=== PATIENT | female | born 1965 | race Hispanic/Latino ===

== ENCOUNTER 2019-05-30 18:10 | Emergency (ER) | payer OTHER ==
[2019-05-30] MEDS ORDERED: ASPIRIN 325 MG TABLET ONE (18:26)
[2019-05-30 18:30] LABS: BASOPHILS % (AUTO) 0.5 % (0.0-5.0); EOSINOPHILS % (AUTO) 1.1 % (0.0-8.0); HEMATOCRIT 34.9 % (36-48); LYMPHOCYTES % (AUTO) 40.6 % (21.0-51.0); MEAN CORPUSCULAR HEMOGLOBIN 29.3 pg (27.0-33.0); MEAN CORPUSCULAR HGB CONC 32.7 g/dL (32.0-36.0); MEAN CORPUSCULAR VOLUME 89.7 fL (79-99); MONOCYTES % (AUTO) 10.7 % (3.0-13.0); NEUTROPHILS % (AUTO) 46.8 % (40.0-77.0); PLATELET COUNT (AUTO) 180 K/uL (130-400); RED BLOOD CELL COUNT(AUTO) 3.89 MIL/uL (4.00-5.50); RED CELL DISTRIBUTION WIDTH 13.1 % (11.0-15.5); WHITE BLOOD COUNT (AUTO) 3.7 K/uL (4.8-10.8)
[2019-05-30 18:42] LABS: CREATININE 0.8 mg/dL (0.5-1.5); POTASSIUM 3.4 mmol/L (3.5-5.1)
[2019-05-30 18:44] LABS: INR 1.13 (0.85-1.15); PARTIAL THROMBOPLASTIN TIME 28.9 SEC (26.3-35.5); PROTHROMBIN TIME 11.8 SEC (9.6-11.6)
[2019-05-30 18:47] LABS: ALBUMIN 3.7 g/dL (3.5-5.0); BILIRUBIN,TOTAL 0.3 mg/dL (0.2-1.0); TOTAL PROTEIN, SERUM 6.7 g/dL (6.0-8.3)
[2019-05-30 19:34] LABS: AMPHET/METH SCREEN,URINE NEGATIVE (NEGATIVE); BARBITURATE SCREEN, URINE NEGATIVE (NEGATIVE); BENZODIAZEPINES SCREEN,URINE NEGATIVE (NEGATIVE); CANNABINOID SCREEN,URINE NEGATIVE (NEGATIVE); COCAINE SCREEN,URINE NEGATIVE (NEGATIVE); OPIATE SCREEN,URINE NEGATIVE (NEGATIVE); PHENCYCLIDINE SCREEN,URINE NEGATIVE (NEGATIVE)
[2019-05-30] MEDS ORDERED: POTASSIUM CHLORIDE 20 MEQ ERTAB PO ONE (22:48)
== END 2019-05-30 22:53 | disposition home or self-care (01) ==
LOC: EDH 18:10
DX: E87.6 Hypokalemia (principal); D70.9 Neutropenia, unspecified; R07.89 Other chest pain
CPT/HCPCS: 36415; 71045; 73030; 80053; 80305; 82550; 84484; 85025; 85610; 85730; 93005

== ENCOUNTER 2025-01-05 23:29 | Emergency (ER) | payer OTHER ==
[~2025-01-05] VITALS: Ht 162.6 cm; Wt 67.1 kg
[2025-01-06 00:04] LABS: IMMATURE GRANULOCYTE ABSOLUTE 0.02 K/uL (0-1); NUCLEATED RED BLOOD CELLS 0.0 % (0.0-0.19); PLATELET COUNT (AUTO) 182 K/uL (130-400); RED BLOOD CELL COUNT(AUTO) 4.24 MIL/uL (4.00-5.50); RED CELL DISTRIBUTION WIDTH 13.2 % (11.0-15.5); WHITE BLOOD COUNT (AUTO) 4.2 K/uL (4.8-10.8)
[2025-01-06] MEDS: FAMOTIDINE 20MG VIAL IV ONE (00:08)
[2025-01-06] MEDS: 0.9%NACL 1000ML 1,000 ML IV ONE (00:10)
[2025-01-06 00:14] LABS: APPEARANCE,URINE CLEAR (CLEAR); CREATININE 0.5 mg/dL (0.5-1.0); GLOMERULAR FILTR. RATE CALC 107.0 mL/min (>90); GLUCOSE, URINE (UA) NEGATIVE (NEGATIVE); GLUCOSE,RANDOM 102.0 mg/dL (70-105); LEUKOCYTE ESTERASE ,URINE 25 Leu/uL (NEGATIVE); NITRATE,URINE NEGATIVE (NEGATIVE); OCCULT BLOOD,URINE NEGATIVE (NEGATIVE); SODIUM SERUM 144.0 mmol/L (136-145); UREA NITROGEN, BLOOD 13.0 mg/dL (7-18)
[2025-01-06 00:17] LABS: ADD UA MICROSCOPIC YES
[2025-01-06 00:19] LABS: SQUAMOUS EPITHELIAL CELL,UR RARE /HPF (0-2)
[2025-01-06 00:39] LABS: COVID19 (SARS ANTIGEN RAPID) PRESUMPTIVE NEGATIVE (NEGATIVE)
[2025-01-06 00:40] LABS: INFLUENZA TYPE A Negative For Type A (NEGATIVE); INFLUENZA TYPE B Negative For Type B (NEGATIVE)
--- NOTE | 2025-01-06 01:24 | ERN ---
ED Note History of Present Illness Stated Complaint: C/O HEADACHE, N X V, DIZZINESS Chief Complaint: Headache Time Seen by MD: 23:42 Dictation: This is a 59-year-old female who presented to the emergency room with her spouse with complaints of a headache nausea vomitings and dizziness that has been going on for the past 10 days off and on. She stated that she has had headaches quite severe associated with nausea vomitings. However the last 2 days it has been her renders as she describes it. The headache is mostly in the frontal and parietal area. This is associated with photosensitivity and severe nausea vomitings. No history of any seizures. No history of any weakness on 1 side. No increased lacrimation Headache is throbbing type. She does give a history of bumping into a wood in a kennel many weeks ago and sustaining a bump on her head. No loss of consciousness no blood thinners. She denied any blurred vision diplopia facial asymmetry. She also denied any neck pains. 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 babysitter Patient states that 15 years ago she has had similar headaches, She has reported that her mother a few weeks ago with a brain tumor Temperature 97.3 pulse 59 respirations 20 blood pressure 132/62 with a pulse oximetry of 98% on room air Allergies: Coded Allergies: No Known Drug Allergies (Unverified Allergy, Unknown, 05/30/19) Home Meds No Active Prescriptions or Reported Meds Past Medical History Past Medical History: No Pertinent History, Migraines Additional Past Medical Hx: THYROID NODULES Surgical History: None Surgical History Other: TUMOR REMOVAL FROM BACK Family History: Negative Social History: Negative History: Not Applicable RN Note Reviewed/Agreed w/PFSH: Yes Review of System Dictation Constitutional: Negative for fever,chills, and weight loss Eyes: Negative for injury, pain,redness, and discharge ENT: Negative for injury,pain or swelling Cardiovascular: Negative for chest pain, palpitations, and edema Respiratory: Negative for shortness of breath, cough, and wheezing, Abdomen/GI: Negative for abdominal pain, diarrhea, and constipation positive for nausea, vomiting, Back: Negative for injury and pain : Negative for injury, bleeding and discharge MS/Extremity: Negative for injury and deformity Skin: Negative for rash, and discoloration Neuro: Positive for headache, denies weakness, numbness, tingling, and seizure history of nocturnal myoclonus occasionally, history of bruxism Psych: Negative for suicide ideation, homicidal ideation, and hallucinations Initial Vital Sign VS Vital Signs Date Time Temp Pulse Resp B/P (MAP) Pulse Ox O2 Delivery O2 Flow Rate FiO2 01/05/25 23:31 97.2 59 20 132/63 98 Room Air 01/05/25 23:50 0 21 Physical Exam Dictation General: awake, alert, NAD Head/Face: Normocephalic, atraumatic Eyes: PERRL, EOMI, vision at baseline ENT: oral cavity clear, TMs clear, no signs of infection, overbite Neck: Trachea midline, supple, no nuchal rigidity Cardiovascular: RRR, normal S1/S2, No MRGs, no JVD Respiratory: CTAB, no respiratory distress, No rales or wheezes Abdomen: Soft, non-tender, non-distended, normal bowel sounds, no guarding or rebound. Skin: Warm, dry, normal turgor, no rash MS/Extremity: Pulses equal, no cyanosis, neurovascular intact, FROM Neuro: COAx4, GCS 15, strength 5/5, CN 2-12 intact, normal cerebellar exam, normal gait, Psych: Normal behavior, mood, and affect normal Extremities-trace edema without any palpable cords, Homans sign is negative Results (Laboratory/Radiology) Laboratory/Radiology Laboratory Tests Test 01/05/25 23:50 01/06/25 00:11 White Blood Count 4.2 K/uL (4.8-10.8) L Red Blood Count 4.24 MIL/uL (4.00-5.50) Hemoglobin 12.8 g/dL (12.0-16.0) Hematocrit 38.5 % (36-48) Mean Corpuscular Volume 90.8 fL (79-99) Mean Corpuscular Hemoglobin 30.2 pg (27.0-33.0) Mean Corpuscular Hemoglobin Concent 33.2 g/dL (32.0-36.0) Red Cell Distribution Width 13.2 % (11.0-15.5) Platelet Count 182 K/uL (130-400) Mean Platelet Volume 10.0 fL (7.5-10.5) Immature Granulocyte % (Auto) 0.5 % (0-1) Neutrophils (%) (Auto) 47.5 % (40.0-77.0) Lymphocytes (%) (Auto) 40.4 % (21.0-51.0) Monocytes (%) (Auto) 8.2 % (3.0-13.0) Eosinophils (%) (Auto) 2.4 % (0.0-8.0) Basophils (%) (Auto) 1.0 % (0.0-5.0) Neutrophils # (Auto) 2.0 K/uL (1.8-7.7) Lymphocytes # (Auto) 1.7 K/uL (1.0-4.8) Monocytes # (Auto) 0.3 K/uL (0.1-1.0) Eosinophils # (Auto) 0.10 K/uL (0.00-0.70) Basophils # (Auto) 0.04 K/uL (0.00-0.20) Absolute Immature Granulocyte (auto 0.02 K/uL (0-1) Nucleated Red Blood Cells 0.0 % (0.0-0.19) Urine Color COLORLESS (YELLOW) Urine Appearance CLEAR (CLEAR) Urine pH 7.0 (5.0-8.0) Urine Specific [place] 1.011 (1.001-1.031) Urine Protein NEGATIVE mg/dL (NEGATIVE) Urine Glucose (UA) NEGATIVE mg/dL (NEGATIVE) Urine Ketones NEGATIVE mg/dL (NEGATIVE) Urine Occult Blood NEGATIVE (NEGATIVE) Urine Nitrate NEGATIVE (NEGATIVE) Urine Bilirubin NEGATIVE mg/dL (NEGATIVE) Urine Urobilinogen 0.2 mg/dL (0.2-1.0) Urine Leukocyte Esterase 25 Daniel/uL (NEGATIVE) H Urine RBC 0-1 /HPF (0-1) Urine WBC 0-1 /HPF (0-1) Urine Squamous Epithelial Cells RARE /HPF (0-2) Urine Bacteria RARE /HPF (None Seen) Sodium Level 144 mmol/L (136-145) Potassium Level 3.6 mmol/L (3.5-5.1) Chloride Level 107 mmol/L (101-111) Carbon Dioxide Level 29 mmol/L (21-32) Blood Urea Nitrogen 13 mg/dL (7-18) Creatinine 0.5 mg/dL (0.5-1.0) Glomerular Filtration Rate Calc 107 mL/min (>90) Random Glucose 102 mg/dL (70-105) Total Calcium 8.6 mg/dL (8.5-10.1) Lipase 58 U/L (16-77) Influenza Type A Antigen Negative For Type A Influenza Type B Antigen Negative For Type B SARS-CoV-2 Antigen (Rapid) PRESUMPTIVE NEGATIVE Labs Reviewed?: Yes CT Scan Comment: REASON: HEADACHE; DIZZINESS ORDERING PHYSICIAN: TRENTON NANCE MD PROCEDURE: HEAD WO - CT HEAD/BRAIN W/O CONTRAST EXAM: Non-contrast CT examination of the Brain CLINICAL HISTORY: Headache and dizziness. TECHNIQUE: Thin collimated axial CT images of the brain were obtained, with sagittal and coronal reformatted images also submitted. CT scan done according to ALARA (As Low as Reasonably Achievable). CONTRAST USED: None. COMPARISON: 11/07/11. FINDINGS: No acute intracranial abnormality is present. No acute cortical infarction, hemorrhage, mass, or mass effect. No hydrocephalus or abnormal extra-axial fluid collections. The posterior fossa is unremarkable. The skull base and calvarium are intact. The included portions of the paranasal sinuses and mastoid air cells are clear. IMPRESSION: No acute intracranial abnormality is present. No interval changes. /[place] DICTATED BY: JONN GRANADOS Jr., MD DATE: 01/06/25221 ELECTRONICALLY SIGNED BY: JONN GRANADOS Jr., MD DATE: 01/06/25221 ED Course ED Course Orders Procedure Category Date Status Time Cbc With Differential LAB 01/05/25 Complete 23:43 Basic Metabolic Panel LAB 01/05/25 Complete 23:43 Urinalysis Profile LAB 01/05/25 Complete 23:43 Influenza Type A & B, LAB 01/05/25 Complete Rapid 23:43 Covid19 (Sars Antigen LAB 01/05/25 Complete Rapid) 23:43 Lipase LAB 01/05/25 Complete 23:43 12 Lead Ekg Tracing- EKG 01/05/25 Logged Technical 23:43 0.9%Nacl 1000ml (Ns PHA 01/06/25 Complete 1000ml) 00:00 Ondansetron 4mg Inj PHA 01/06/25 Complete (Zofran 4mg Inj) 00:00 Famotidine 20mg Vial PHA 01/06/25 Complete (Pepcid 20mg Vial) 00:00 Ct Head/Brain W/O CT 01/05/25 Resulted Contrast 23:48 Morphine 4mg Syg PHA 01/05/25 Complete (Morphine 4mg Syg) 23:45 Hydromorphone 0.5mg PHA 01/06/25 Complete Syg (Dilaudid 0.5mg 01:00 Diphenhydramine Hcl PHA 01/06/25 Complete (Benadryl Inj) 01:00 Current Medications Medications (Trade) Dose Ordered Sig/Tom Route PRN Reason Start Time Stop Time Status Last Admin Dose Admin Diphenhydramine HCl (BENAdryl INJ) 25 mg ONCE ONCE IV 01/06/25 01:00 01/06/25 01:01 DC Famotidine (Pepcid 20mg Vial) 20 mg ONCE ONCE IV 01/06/25 00:00 01/06/25 00:01 DC 01/06/25 00:08 Hydromorphone HCl (DiLAUDid 0.5MG INJ) 0.5 mg ONCE ONCE IVP 01/06/25 01:00 01/06/25 01:01 DC Morphine Sulfate (morPHINE 4MG SYG) 2 mg ONCE ONCE IVP 01/05/25 23:45 01/05/25 23:50 DC 01/06/25 00:08 Ondansetron HCl (zoFRAN 4MG INJ) 4 mg ONCE ONCE IVP 01/06/25 00:00 01/06/25 00:01 DC 01/06/25 00:08 Sodium Chloride 1,000 ml @ 0 mls/hr ONCE ONCE IV 01/06/25 00:00 01/06/25 00:01 DC 01/06/25 00:10 Vital Signs Date Time Temp Pulse Resp B/P (MAP) Pulse Ox O2 Delivery O2 Flow Rate FiO2 01/05/25 23:50 64 18 120/45 98 Room Air* 0 21 01/05/25 23:31 97.2 59 20 132/63 98 Room Air We will perform diagnostic labs, advanced imaging and administer medications according to the patient's complaint. Once the results are available, will review and personally interpreted the labs to rule out any acute life- threatening emergency the trach require immediate intervention and treatment. I will then re-evaluate the patient after treatment and diagnostic exams have return to determine whether the patient requires any further testing, can safely be discharged home or need further admission to hospital for additional treatment and evaluation. Medical Decision Making MDM Differential diagnosis: Migraine, cluster headache, partial hemicrania, tension headache This is a 59-year-old female who presented to the emergency room with her spouse with complaints of a headache nausea vomitings and dizziness that has been going on for the past 10 days off and on. She stated that she has had headaches quite severe associated with nausea vomitings. However the last 2 days it has been her renders as she describes it. The headache is mostly in the frontal and parietal area. This is associated with photosensitivity and severe nausea vomitings. No history of any seizures. No history of any weakness on 1 side. No increased lacrimation Headache is throbbing type. She does give a history of bumping into a wood in a kennel many weeks ago and sustaining a bump on her head. No loss of consciousness no blood thinners. She denied any blurred vision diplopia facial asymmetry. She also denied any neck pains. 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 babysitter Patient states that 15 years ago she has had similar headaches, She has reported that her mother a few weeks ago with a brain tumor Temperature 97.3 pulse 59 respirations 20 blood pressure 132/62 with a pulse oximetry of 98% on room air Rationale: Tests considered and ordered secondary to shared decision making include: Labs and CT head Previous outside records reviewed: Old ER visits. Risk of complication and/or morbidity or mortality of patient management: None Medications-Per medication reconciliation Need for hospitalization: Patient does not meet criteria for hospitalization. Need for emergency major/minor surgery: No There are no social concerns with this patient. Prescription drug management Prescriptions will include symptomatic care Patient's prior external medical records from other ER visits were reviewed by me as indicated. Prior testing and results from previous visits were reviewed. Prior tests were taken into account with medical decision making and resource utilization, independent historian/historians were used to obtain complete medical history. I independently interpreted the test that were performed, results were reviewed by me and considered findings on radiology if ordered. Medical management and examination interpretation discussions were had by me with other qualified healthcare professionals as indicated for the patient's care. Problem List Problem List: (1) Status migrainosus DX & DISP Disposition: Discharge Departure Impression: Primary Impression: Status migrainosus Condition: Stable Scripts Ondansetron (Ondansetron Odt) 4 Mg Tab.rapdis 4 MG PO Q6HPRN PRN for nausea, #16 TAB 0 Refills Prov: TRENTON NANCE MD 01/06/25 Additional Instructions: Patient and the caregiver have been informed of all the diagnostic tests and the imaging conducted during the today's visit to the emergency room and has verbalized understanding of the results I have personally reviewed and interpreted all diagnostic exams performed here in the ER today as well as the vital signs documented by the nursing staff. The patient is now being discharged to home and should follow up with the primary care physician or the specialist as directed by the ER staff. Follow-up with primary care provider in 1 to 2 days. Take medications as directed here in the emergency room. Okay to continue home medications unless otherwise discussed during your visit in the emergency room today. Return to your nearest emergency room if symptoms worsen or if there is no improvement. Call 911 if you need immediate assistance. Take Tylenol or Motrin [id number] as needed and if no contraindications are present. Increase oral hydration. A wound culture or urine culture was ordered here in the emergency room department please follow-up with primary care provider and advise them to get repeat ports from our facility. If you had any Fish wrap/splints that were applied here, please do not remove them until you see your primary care or specialty. Referrals: CHIQUITA TSAI (PCP) TRENTON NANCE MD Jan 06, 2025 01:24
[2025-01-06] MEDS ORDERED: FIORIT PO (02:00)
[2025-01-06] MEDS ORDERED: ONDA-243 PO (02:04)
[2025-01-06 02:20] VITALS: BP 116/52; PULSE 68; RESP 16; TEMP 97.6; O2SAT 98
--- NOTE | 2025-01-06 07:08 | EKG ---
[facility] Test Date: 2025-01-06 Test Time: 00:05:44 Pat Name: ANKUR BROWN Department: ED Room: Gender: F Densitometrist: [id number] : 1965 Requested By: TRENTON NANCE Order Number: [id number] Reading MD: Tee Kaplan Measurements Intervals Dexter Rate: 53 P: 65 SC: 156 QRS: 51 QRSD: 104 T: 49 QT: 434 QTc: 406 Interpretive Statements Sinus rhythm Compared to ECG 11/19/2023 12:49:53 Sinus bradycardia no longer present Myocardial infarct finding no longer present Electronically Signed On 01-07-2025 06:54:17 CDT by Tee Kaplan Please click the below link to view image of tracing.
== END 2025-01-06 02:21 | disposition home or self-care (01) ==
LOC: EDH 23:29
DX: G43.901 Migraine, unspecified, not intractable, with status migrainosus (principal); R11.2 Nausea with vomiting, unspecified; R42 Dizziness and giddiness; Z20.822 Contact with and (suspected) exposure to COVID-19
CPT/HCPCS: 99285; 70450; 87426; 80048; 83690; 85025; 87804 ×2; 81001; 36415; 93005; 96374; 96375; J1308; J7030; J2405; J2270; J1171; J1200